=== PATIENT | male | born 1960 | race Caucasian/White ===

== ENCOUNTER 2016-05-07 06:00 | Emergency (ER) | payer OTHER | END 2016-05-07 06:22 | disposition home or self-care (01) | LOC: ER 06:00 | DX: J02.9 Acute pharyngitis, unspecified (principal); I10 Essential (primary) hypertension; Z88.2 Allergy status to sulfonamides | CPT/HCPCS: 87070; 87880; 96372; 99284; A9270-GY ==

== ENCOUNTER 2016-06-15 23:25 | Emergency (ER) | payer OTHER | END 2016-06-16 03:18 | disposition home or self-care (01) | LOC: ER 23:25 | DX: M54.5 Low back pain (principal); J45.909 Unspecified asthma, uncomplicated; Z88.2 Allergy status to sulfonamides; W19.XXXA Unspecified fall, initial encounter | CPT/HCPCS: 96372; 99283; J1040 ==

== ENCOUNTER 2016-07-17 19:38 | Observation (INO) | payer OTHER ==
--- NOTE | ~2016-07-17 | HP ---
History And Physical [place] [id number] [facility] [place]. [address] NAME: ELDER PENG : 64 STATUS : ADM Jasmine PAT#: [id number] AGE: 55 ADM/REG DATE : 07/17/16 MR#: [id number] REPORT SERV DATE: 07/18/16 DICTATED BY: ALLISON MAY DATE: 07/18/16 REPORT STATUS : Draft TRANSCRIBED BY: MODShannan DATE: 07/18/16 DATE OF ADMISSION: 07/17/2016 CHIEF COMPLAINT: Chest pain and passed out. HISTORY OF PRESENT ILLNESS: This is a 55-year-old male with history of hypertension, who was lifting weights yesterday afternoon and suddenly "felt my face burning." The patient stopped and thought his blood pressure was high so we took his blood pressure medicine, lisinopril 20 mg which he takes intermittently and continued his workout. After his workout, he sat down to watch TV and developed intense midsternal chest pain, which he stated lasted approximately one minute. He took an acid atomic welder and laid down in bed, and felt better. A little bit later, the chest pain reoccurred. This time he got significantly dizzy and nauseated and actually dropped down to his knees. His brother who is at bedside observed this. The patient states he blacked out and his brother states this lasted a few seconds. When he came to, brother states his speech is a little bit mumbled and incoherent for approximately 30 seconds. No seizure-like activity was witnessed. The patient states he is pretty nauseated after the event. He then came to our emergency department for further evaluation. He has had no further occurrence of his symptoms. The patient states a similar episode several years ago when he is walking through [employer], but this time he did not pass out. He checked his blood pressure at that time and was significantly elevated, so he saw primary care physician the next day and was started on lisinopril 20 mg which he only uses p.r.n. "when he feels like his blood pressure is high." He states that he has not had significantly elevated blood pressures recently, so he has not been taking it. The patient denies any recent fever, cough, or chills. No orthopnea, PND, or lower extremity edema. Denies personal history for FL, CVA, DVT or PE. MEDICAL HISTORY: 1. Hypertension, borderline. 2. Asthma, as a child. 3. Anxiety, depression. SURGICAL HISTORY: Cholecystectomy. HOME MEDICATIONS: Ibuprofen 400 daily p.r.n. pain and lisinopril 20 mg daily p.r.n. when his blood pressure is up. ALLERGIES: ALLERGY TO SULFA CAUSES NAUSEA. SOCIAL HISTORY: The patient is a , currently lives with his daughter. He works at a [employer]. He has never smoked. Drinks an alcoholic beverage perhaps one time per week. Denies illicit drug use. He does chew tobacco. He maintains a regular regimen of working out most days of the week. FAMILY HISTORY: Negative for premature cardiovascular disease among his first degree relatives. History And Physical [address] [address] NAME: ELDER PENG : 64 STATUS : ADM Jasmine PAT#: [id number] AGE: 55 ADM/REG DATE : 07/17/16 MR#: [id number] REPORT SERV DATE: 07/18/16 DICTATED BY: ALLISON MAY DATE: 07/18/16 REPORT STATUS : Draft TRANSCRIBED BY: ZEHRA DATE: 07/18/16 REVIEW OF SYSTEMS: Negative except as indicated above. PHYSICAL EXAMINATION: VITAL SIGNS: Blood pressure 120/68, heart rate of 58, temperature 97.0, pulse oximetry 97% on room air. BMI 27.2. Orthostatic blood pressures were obtained in the emergency department with lying down 139/68 and standing 126/56. GENERAL: Well developed, well nourished, in no acute distress. HEENT: Anicteric. Normal EOM. Head normocephalic. PERRLA, no xanthelasma. NECK: Supple. No JVD. Carotids normal without bruits. LUNGS: Clear to auscultation bilaterally anterior and posterior. Respirations even and unlabored. CARDIAC: S1, S2 regular rate and rhythm. No murmurs, rubs, or gallops. No chest wall tenderness. ABDOMEN: Normal bowel sounds. Soft and nontender to palpation. No masses or organomegaly. EXTREMITIES: No peripheral edema. DP/PT and radial pulses palpable bilaterally. No clubbing or cyanosis. SKIN: Warm and dry. Normal turgor. No pallor or cyanosis. MUSCULOSKELETAL: Moving all extremities x4. Normal muscle strength. NEURO/PSYCH: Alert and oriented with appropriate affect. LABORATORY DATA: Sodium 140; potassium 3.6, corrected to 4.8; BUN 10; creatinine 1.0. Hemoglobin 13.9, hematocrit 40.9, white blood count 11.2. Troponin less than 0.02 x2. Chest x-ray showed no acute cardiopulmonary processes. EKGs interpreted by myself indicate normal sinus rhythm on three separate EKGs. Telemetry reviewed shows no evidence of events. ASSESSMENT AND PLAN: 1. Atypical chest pain in this 55-year-old male with cardiovascular risk factors of chewing tobacco and borderline hypertension. Recommend proceeding with a treadmill only stress test today. 2. Syncopal episode. I believe this was a vasovagal event secondary to the intensity of the chest pain as well as the patient taking a 20 mg dose of lisinopril. We are planning stress testing today to further evaluate the chest pain for an ischemic etiology. If this is low risk, we will plan to discharge him home with followup with a primary care physician of his choice within next one to two weeks. 3. Hypertension, the patient states is mostly controlled without medications. I have educated the patient that his goal blood pressure is less than 140/90. He has a blood pressure cuff at home and I recommended that he take his blood pressure twice daily. If his blood pressures are consistently greater than 140/90, he should begin his lisinopril 10 mg daily and do not use it p.r.n. I have asked the patient to find a primary care physician and to follow up with someone. KAREN/ZEHRA History And Physical [address] [place]. [address] NAME: ELDER PENG : 64 STATUS : ADM Jasmine PAT#: [id number] AGE: 55 ADM/REG DATE : 07/17/16 MR#: [id number] REPORT SERV DATE: 07/18/16 DICTATED BY: ALLISON MAY DATE: 07/18/16 REPORT STATUS : Draft TRANSCRIBED BY: ZEHRA DATE: 07/18/16 Allison May NP / [id number] CC: Radha Schrader, MSN, FLOW M[employer]TER-BC
[2016-07-17 17:37] LABS: BASOPHILS 0.4 %; BASOPHILS ABSOLUTE 0.04 10/3/uL (0.0-0.16); EOSINOPHILS 0.9 %; ER CBC TAT 0 Hrs 10 Mins; HEMATOCRIT 40.9 % (40.0-51.0); HEMOGLOBIN 13.9 g/dL (13.6-17.8); IMMATURE GRANULOCYTES 0.3 %; IMMATURE GRANULOCYTES ABSOLUTE 0.03 10/3/uL (0.0-0.11); LYMPHOCYTES 20.6 %; MANUAL DIFF NO %; MEAN CORPUSCULAR HEMOGLOB 30.4 pg (26.0-34.0); MEAN CORPUSCULAR VOLUME 89.5 fL (80-100); MEAN PLATELET VOLUME 9.6 fL (9.2-13.0); NEUTROPHILS 69.8 %; NEUTROPHILS ABSOLUTE 7.82 10/3/uL (2.02-8.40); PLATELET COUNT 263 10/3/uL (150-400); RBC DISTRIBUTION WIDTH 13.3 % (12.0-16.0); RED CELL COUNT 4.57 10/6/uL (4.7-6.1); WHITE BLOOD CELLS 11.2 10/3/uL (4.5-10.5)
[2016-07-17 17:44] LABS: INTERNATIONAL NORMAL RATI 1.1 UNITS (-); PARTIAL THROMBO TIME 24.4 SEC (22.5-37.2); PROTIME (NOT ORD) 14.1 SEC (12.0-14.5)
[2016-07-17 17:59] LABS: BUN (BLOOD UREA NITROGEN) 10 MG/DL (6-23); CALCIUM, SERUM 8.8 MG/DL (8.5-10.4); CHLORIDE, SERUM 107 MMOL/L (96-112); CO2 (CARBON DIOXIDE) 25 MMOL/L (24-34); CREATININE 1.04 MG/DL (0.70-1.30); GFR AFRICAN AMERICAN 95 ML/MIN (>=60); GFR NON AFRICAN AMERICAN 82 ML/MIN (>=60); GLUCOSE, SERUM 148 MG/DL (60-99); POTASSIUM, SERUM 3.6 MMOL/L (3.5-5.3); SODIUM, SERUM 140 MMOL/L (135-148); TROPONIN I <0.02 NG/ML (<0.05)
[2016-07-17 18:00] LABS: CHEST PAIN PROFILE TAT 0 Hrs 32 Mins
[2016-07-17] MEDS ORDERED: PRIN20 PO (20:33)
[2016-07-17] MEDS ORDERED: IBU400 PO (20:33)
== END 2016-07-18 12:15 | disposition home or self-care (01) ==
LOC: ER 19:38 → CDU1 19:47
PROVIDERS: Emergency Medicine
DX: R07.89 Other chest pain (principal); R55 Syncope and collapse; I10 Essential (primary) hypertension; J45.909 Unspecified asthma, uncomplicated; F41.9 Anxiety disorder, unspecified; F32.9 Major depressive disorder, single episode, unspecified; F17.290 Nicotine dependence, other tobacco product, uncomplicated; Z90.49 Acquired absence of other specified parts of digestive tract; Z88.2 Allergy status to sulfonamides
CPT/HCPCS: 71020; 80048; 83735; 84132; 84484; 85025; 85610; 85730; 93005; 93017; 99285; A9270-GY; G0378